=== PATIENT | male | born 1970 | race Caucasian/White ===

== ENCOUNTER 2016-05-15 08:17 | Observation (INO) | payer OTHER ==
[~2016-05-15] VITALS: Ht 160 cm; Wt 92.7 kg
[2016-05-15] VITALS (11 sets, daily range): BP systolic 102–132; BP diastolic 72–85; PULSE 87–132; RESP 18–20; TEMP 97.5–102.5; O2SAT 95–98
[~2016-05-15 08:17] MED LIST: LEXA10TA; [UNRECOGNIZED DRUG - OTHER]
[2016-05-15] MEDS ORDERED: LOMO2.5T PO (08:56)
[2016-05-15] MEDS ORDERED: SODIUM CHLOR 0.9% 1000 ML INJ 1,000 ML IV SCH ×2 (09:15)
[2016-05-15 09:50] LABS: AUTOMATED NEUTROPHIL # 10.8 TH/MM3 (1.8-7.7); BASOPHIL # 0.1 TH/MM3 (0-0.2); BASOPHIL % 0.6 % (0.0-2.0); HEMATOCRIT 37.3 % (39.0-51.0); LYMPH % 2.3 % (9.0-44.0); LYMPHOCYTE # 0.3 TH/MM3 (1.0-4.8); MEAN CELL VOLUME 89.2 FL (80.0-100.0); MEAN CORPUSCULAR HGB CONC 34.8 % (32.0-36.0); MONO % 2.1 % (0.0-8.0); PLATELET COUNT 162 TH/MM3 (150-450); RED BLOOD COUNT 4.19 MIL/MM3 (4.50-5.90); RED CELL DISTRIBUTION WIDTH 12.4 % (11.6-17.2); WHITE BLOOD COUNT 11.4 TH/MM3 (4.0-11.0)
--- NOTE | 2016-05-15 09:50 | RADHPO ---
EXAM DATE/TIME: 05/15/2016 09:23 [place] COMPARISON: No previous studies available for comparison. INDICATIONS : Short of breath, cough, fever MEDICAL HISTORY : None. SURGICAL HISTORY : None. ENCOUNTER: Initial ACUITY: 4 - 6 days PAIN SCORE: 0/10 LOCATION: Bilateral chest FINDINGS: Frontal and lateral views of the chest demonstrates severe dense airspace consolidation within the ri ght middle lobe. No pleural effusion or pneumothorax is visualized. Bones and soft tissues demonstrat e no acute finding. CONCLUSION: Severe dense airspace consolidation within the right middle lobe. Given the history of cough and feve r this is diagnostic of a lobar pneumonia. Recommend followup chest x-ray in approximately 4-6 weeks following appropriate therapy to confirm resolution. Alex Kc MD on May 15, 2016 at 9:45 Board Certified Radiologist. This report was verified electronically.
[2016-05-15 09:52] LABS: GLUCOSE,URINE NEG (NEG); KETONE, URINE TRACE mg/dL (NEG); NITRITE,URINE NEG (NEG)
[2016-05-15 09:53] LABS: HEMO FLAGS DIFF FINAL
[2016-05-15 09:55] LABS: BLOOD, URINE MOD (NEG); METHOD OF COLLECTION CLEAN CATCH; URINE COLOR YELLOW (YELLW/STRAW)
[2016-05-15 09:56] LABS: SQUAMOUS EPITHELIAL CELL URINE 0-5 /hpf (0-5); WBC, URINE 0-2 /hpf (0-5)
[2016-05-15 09:57] LABS: COMMENT (UR) CULT NOT INDICATED; CULTURE IF INDICATED CULT NOT INDICATED
[2016-05-15 10:08] LABS: CHLORIDE 91 MEQ/L (98-107); POTASSIUM 3.2 MEQ/L (3.5-5.1); SODIUM (NA) 125 MEQ/L (136-145)
[2016-05-15 10:12] LABS: ANION GAP 12 MEQ/L (5-15); BICARBONATE 22.2 MEQ/L (21.0-32.0); BLOOD UREA NITROGEN 14 MG/DL (7-18)
[2016-05-15 10:15] LABS: ALT (GPT) 53 U/L (12-78); AST (GOT) 60 U/L (15-37); GLOMERULAR FILTRATION RATE 94 ML/MIN (>89)
[2016-05-15 10:16] LABS: TOTAL BILIRUBIN ADULT 1.4 MG/DL (0.2-1.0)
[2016-05-15 10:18] LABS: ALKALINE PHOSPHATASE 78 U/L (45-117)
--- NOTE | 2016-05-15 10:27 | PD ---
HPI Chief Complaint: Fever Time Seen by Provider: 08:51 Travel History International Travel<30 days: No Contact w/Intl Traveler<30days: No Traveled to known affect area: No History of Present Illness HPI Is a 46-year-old man who presents emergency department complaining of high fevers chills cough and rib pain ongoing for the past 5 days or so. Fever came on abruptly, 103. He's had persistent fever or cough. He developed rib pain in the anterior chest worse with coughing. He's had some diarrhea with this but no vomiting. No definite sick contacts. States she was getting continuously worse, and after he developed a high fever again today he came to the emergency department. He has no history of lung disease but does smoke tobacco daily. Only medical history is IBS for which he takes Lomotil. History Past Medical History Narrative Medical IBS Tobacco use Influenza Vaccination: No Social History Alcohol Use: Yes (3 x's per week ) Tobacco Use: Yes (1 PPD) Allergies-Medications (Allergen,Severity, Reaction): Coded Allergies: No Known Allergies (Verified , 05/15/16) Reported Meds & Prescriptions Reported Meds & Active Scripts Active Reported Lomotil (Diphenoxylate-Atropine) 2.5-0.025 Mg Tab 1 Tab PO Q6H PRN Review of Systems Except as stated in HPI: all other systems reviewed are Neg Physical Exam Narrative GENERAL: 46-year-old man, appears uncomfortable but nontoxic. SKIN: Warm and dry. HEAD: Atraumatic. Normocephalic. EYES: Pupils equal and round. No scleral icterus. No injection or drainage. ENT: No nasal bleeding or discharge. Mucous membranes pink and moist. Throat is normal. NECK: Trachea midline. No JVD. CARDIOVASCULAR: Regular rate and rhythm. No murmur appreciated. RESPIRATORY: Mild tachypnea. Lungs are clear. No wheezing. GASTROINTESTINAL: Abdomen soft, non-tender, nondistended. Hepatic and splenic margins not palpable. MUSCULOSKELETAL: No obvious deformities. No edema. NEUROLOGICAL: Awake and alert. No obvious cranial nerve deficits. Motor grossly within normal limits. Normal speech. PSYCHIATRIC: Appropriate mood and affect; insight and judgment normal. Data Data Last Documented VS Vital Signs Date Time Temp Pulse Resp B/P Pulse Ox O2 Delivery O2 Flow Rate FiO2 05/15/16 09:49 100.4 121 18 130/80 98 Room Air Orders Influenzae A/B Antigen (05/15/16 08:52) Complete Blood Count With Diff (05/15/16 09:11) Comprehensive Metabolic Panel (05/15/16 09:11) Lactic Acid Sepsis Protocol (05/15/16 09:11) Urinalysis - C+S If Indicated (05/15/16 09:11) Blood Culture (05/15/16 09:11) Chest, Pa & Lat (05/15/16 09:11) Ecg Monitoring (05/15/16 09:11) Iv Access Insert/Monitor (05/15/16 09:11) Oximetry (05/15/16 09:11) Oxygen Administration (05/15/16 09:11) Sodium Chlor 0.9% 1000 Ml Inj (Ns 1000 M (05/15/16 09:15) Sodium Chlor 0.9% 1000 Ml Inj (Ns 1000 M (05/15/16 09:15) Ketorolac Inj (Toradol Inj) (05/15/16 10:45) Albuterol-Ipratropium Neb (Duoneb Neb) (05/15/16 12:00) Ceftriaxone Inj (Rocephin Inj) (05/15/16 10:45) Azithromycin Inj (Zithromax Inj) (05/15/16 10:45) Admit Order (Ed Use Only) (05/15/16 ) Labs Laboratory Tests Test 05/15/16 09:40 White Blood Count 11.4 TH/MM3 Red Blood Count 4.19 MIL/MM3 Hemoglobin 13.0 GM/DL Hematocrit 37.3 % Mean Corpuscular Volume 89.2 FL Mean Corpuscular Hemoglobin 31.0 PG Mean Corpuscular Hemoglobin 34.8 % Concent Red Cell Distribution Width 12.4 % Platelet Count 162 TH/MM3 Mean Platelet Volume 7.7 FL Neutrophils (%) (Auto) 95.0 % Lymphocytes (%) (Auto) 2.3 % Monocytes (%) (Auto) 2.1 % Eosinophils (%) (Auto) 0.0 % Basophils (%) (Auto) 0.6 % Neutrophils # (Auto) 10.8 TH/MM3 Lymphocytes # (Auto) 0.3 TH/MM3 Monocytes # (Auto) 0.2 TH/MM3 Eosinophils # (Auto) 0.0 TH/MM3 Basophils # (Auto) 0.1 TH/MM3 CBC Comment DIFF FINAL Differential Comment Urine Collection Type CLEAN CATCH Urine Color YELLOW Urine Turbidity CLEAR Urine pH 6.0 Urine Specific [place] 1.020 Urine Protein 100 mg/dL Urine Glucose (UA) NEG mg/dL Urine Ketones TRACE mg/dL Urine Occult Blood MOD Urine Nitrite NEG Urine Bilirubin NEG Urine Leukocyte Esterase NEG Urine RBC 4-9 /hpf Urine WBC 0-2 /hpf Urine Squamous Epithelial 0-5 /hpf Cells Microscopic Urinalysis Comment CULT NOT INDICATED Urine Collection Time 09:40 Sodium Level 125 MEQ/L Potassium Level 3.2 MEQ/L Chloride Level 91 MEQ/L Carbon Dioxide Level 22.2 MEQ/L Anion Gap 12 MEQ/L Blood Urea Nitrogen 14 MG/DL Creatinine 0.87 MG/DL Estimat Glomerular Filtration 94 ML/MIN Rate Random Glucose 149 MG/DL Lactic Acid Level 1.0 mmol/L Calcium Level 7.5 MG/DL Total Bilirubin 1.4 MG/DL Aspartate Amino Transf 60 U/L (AST/SGOT) Alanine Aminotransferase 53 U/L (ALT/SGPT) Alkaline Phosphatase 78 U/L Total Protein 6.7 GM/DL Albumin 2.4 GM/DL [facility] Medical Decision Making Medical Screen Exam Complete: Yes Emergency Medical Condition: Yes Interpretation(s) LABS: CBC remarkable for mild leukocytosis. CMP CMP unremarkable Lactate 1.0 UA trace ketones Influenza negative Chest x-ray: Demonstrates consolidation in the right middle lobe, recommend repeat imaging after resolution. Differential Diagnosis Influenza, bronchitis, URI, pneumonia Narrative Course Medical decision making 46-year-old male presents emergency Department with 5 days of cough cold fever symptoms, tobacco use, concerning for pneumonia. Chest x-ray shows dense lobar consolidation the right middle lobe suggestive of pneumonia. Influenza is negative. White count labs are otherwise unremarkable. There is a little bit tachycardic. We'll give dose of IV antibiotics, Diagnosis Primary Impression: Sepsis Qualified Code: A41.9 - Sepsis, due to unspecified organism Additional Impression: Pneumonia Qualified Code: J18.1 - Pneumonia of right middle lobe due to infectious organism Barron Beasley MD May 15, 2016 10:27
[2016-05-15] MEDS ORDERED: cefTRIAXone INJ 1,000 MG in SODIUM CHLORIDE 0.9% INJ 100 ML IV ONE (10:45)
[2016-05-15] MEDS ORDERED: KETOROLAC TROMETHAMINE 30 MG/ML (IVP) VIAL IV PUSH ONE (10:45)
[2016-05-15] MEDS ORDERED: AZITHROMYCIN INJ 500 MG in SODIUM CHLOR 0.9% 250 ML INJ 250 ML IV ONE (10:45)
[2016-05-15] MEDS ORDERED: ONDANSETRON HCL 4 MG/2 ML VIAL IV PRN (11:30)
[2016-05-15] MEDS ORDERED: guaiFENesin/DEXTROMETHORPHAN 200 MG/20 MG/10 ML CUP PO PRN (11:30)
[2016-05-15] MEDS ORDERED: SODIUM CHLORIDE 0.9% FLUSH 5 ML FLUSH IV FLUSH PRN (11:30)
[2016-05-15] MEDS ORDERED: RESP: ALBUTEROL 2.5 MG/IPRATROPIUM 0.5 MG NEB (PRN) INH (11:30)
[2016-05-15] MEDS ORDERED: ACETAMINOPHEN 325 MG TAB PO PRN (11:30)
[2016-05-15] MEDS ORDERED: RESP: ALBUTEROL 2.5 MG/IPRATROPIUM 0.5 MG NEB (SCH) NEB (12:00)
[2016-05-15] MEDS: SODIUM CHLOR 0.9% 1000 ML INJ 1,000 ML IV SCH ×2 (12:02→20:01)
[2016-05-15] MEDS: LEVOFLOXACIN 750 MG TAB PO SCH (12:06)
[2016-05-15] MEDS: methylPREDNISolone SOD SUCC 40 MG/1 ML VIAL IV SCH (13:02)
--- NOTE | 2016-05-15 15:20 | HHI.HP ---
[facility] Service [facility] Primary Care Physician Nico Capellan MD Admission Diagnosis sepsis, pneumonia Diagnoses: (1) Sepsis Diagnosis: Principal (2) Pneumonia Diagnosis: Principal Chief Complaint: Fever, cough Travel History International Travel<30 Days: No Contact w/Intl Traveler <30 Da: No Traveled to Known Affected Are: No History of Present Illness 46-year-old male with no chronic medical illnesses presented to hospital because of fever and cough. Patient states that his symptoms started last Monday with low-grade fever, chills, cold sweats, cough which was nonproductive. He tried [id number] medications without any relief. Patient did contact his primary medical doctor and supposedly there was a prescription specific called in but did not happen. He did contact on- demand in which she was prescribed Tamiflu, cough medicine. He did not improve. His fever got up to 103.5 today he came to the hospital for evaluation upon presentation patient was found to have sepsis with tachycardia, fever, and dense right lung pneumonia. As previous stated patient has had fever , chills, cold sweats, cough, no production, no shortness of breath or dyspnea. No abdominal pain, nausea, vomiting, diarrhea. Review of Systems Constitutional: DENIES: Diaphoretic episodes, Fatigue, Fever, Weight gain, Weight loss, Chills, Dizziness, Change in appetite, Night Sweats Eyes: DENIES: Blurred vision, Diplopia, Eye inflammation, Eye pain, Vision loss , Double Vision Ears, nose, mouth, throat: DENIES: Vertigo, Nasal discharge, Throat pain, Ear Pain, Running Nose, Sinus Pain Respiratory: COMPLAINS OF: Cough, DENIES: Apneas, Snoring, Wheezing, Hemoptysis, Sputum production, Shortness of breath Cardiovascular: DENIES: Chest pain, Palpitations, Syncope, Dyspnea on Exertion , Lower Extremity Edema, Orthopnea Gastrointestinal: DENIES: Abdominal pain, Black stools, Bloody stools, Constipation, Diarrhea, Nausea, Vomiting, Difficulty Swallowing, Anorexia Neurologic: DENIES: Abnormal gait, Headache, Localized weakness, Paresthesias, Seizures, Speech Problems, Tremor, Poor Balance Past Family Social History Past Medical History No chronic medical illnesses Past Surgical History Next facial surgery Reported Medications Reported Meds & Active Scripts Active Reported Lomotil (Diphenoxylate-Atropine) 2.5-0.025 Mg Tab 1 Tab PO Q6H PRN Allergies: Coded Allergies: No Known Allergies (Verified , 05/15/16) Family History Reviewed and unremarkable Social History Patient smokes a pack a cigarettes a day since he was 14 years old. He does drink alcohol pretty much daily anywhere from 2-5 beers daily. He does smoke marijuana occasionally Physical Exam Vital Signs Vital Signs Date Time Temp Pulse Resp B/P Pulse Ox O2 Delivery O2 Flow Rate FiO2 05/15/16 13:26 102 20 104/72 97 Room Air 05/15/16 12:16 98.9 111 20 102/79 97 Room Air 05/15/16 11:04 95 21 05/15/16 10:56 124 95 Room Air 05/15/16 10:56 124 20 116/85 95 Room Air 05/15/16 09:49 100.4 121 18 130/80 98 Room Air 05/15/16 09:48 98 Room Air 05/15/16 08:23 102.5 132 18 132/85 95 Physical Exam GENERAL: Well-developed, well-nourished, in no acute distress. alert and orientated HEENT: Head is normocephalic without any lesions or masses noted. Facial features are symmetric. Eyes: Pupils equal round reactive to light. Extraocular muscles are intact. Conjunctivae were clear. Oropharyngeal: Pharynx without any erythema edema. Tongue is midline without deviation. Buccal mucosa is moist without any masses or lesions NECK: Supple without any masses. Trachea midline no deviation. No JVD, no bruits are appreciated CARDIAC: Regular rhythm, regular rate. S1/S2 are heard. No murmurs gallops or rubs. LUNGS: Clear to auscultation bilaterally. No wheeze, rhonchi or rales. No use of accessory muscles on inspiration or expiration. ABDOMEN: Soft, nontender. Nondistended. Bowel sounds heard in all 4 quadrants. No organomegaly or masses. Negative rebound, negative guarding EXTREMITIES: No edema, pulses are equal bilaterally. No cyanosis or clubbing NEUROLOGY: Mood and affect appear appropriate. Cranial nerves II through XII grossly intact. Muscle strength 5/5 in upper and lower extremities bilaterally. Deep tendon reflexes are 2+ in upper and lower extremities bilaterally. Laboratory Laboratory Tests Test 05/15/16 09:40 White Blood Count 11.4 Red Blood Count 4.19 Hemoglobin 13.0 Hematocrit 37.3 Mean Corpuscular Volume 89.2 Mean Corpuscular Hemoglobin 31.0 Mean Corpuscular Hemoglobin 34.8 Concent Red Cell Distribution Width 12.4 Platelet Count 162 Mean Platelet Volume 7.7 Neutrophils (%) (Auto) 95.0 Lymphocytes (%) (Auto) 2.3 Monocytes (%) (Auto) 2.1 Eosinophils (%) (Auto) 0.0 Basophils (%) (Auto) 0.6 Neutrophils # (Auto) 10.8 Lymphocytes # (Auto) 0.3 Monocytes # (Auto) 0.2 Eosinophils # (Auto) 0.0 Basophils # (Auto) 0.1 CBC Comment DIFF FINAL Differential Comment Urine Collection Type CLEAN CATCH Urine Color YELLOW Urine Turbidity CLEAR Urine pH 6.0 Urine Specific [place] 1.020 Urine Protein 100 Urine Glucose (UA) NEG Urine Ketones TRACE Urine Occult Blood MOD Urine Nitrite NEG Urine Bilirubin NEG Urine Leukocyte Esterase NEG Urine RBC 4-9 Urine WBC 0-2 Urine Squamous Epithelial 0-5 Cells Microscopic Urinalysis Comment CULT NOT INDICATED Urine Collection Time 09:40 Sodium Level 125 Potassium Level 3.2 Chloride Level 91 Carbon Dioxide Level 22.2 Anion Gap 12 Blood Urea Nitrogen 14 Creatinine 0.87 Estimat Glomerular Filtration 94 Rate Random Glucose 149 Lactic Acid Level 1.0 Calcium Level 7.5 Total Bilirubin 1.4 Aspartate Amino Transf 60 (AST/SGOT) Alanine Aminotransferase 53 (ALT/SGPT) Alkaline Phosphatase 78 Total Protein 6.7 Albumin 2.4 Date/Time Procedure Status Source Growth 05/15/16 10:40 Aerobic Blood Culture Received Blood Peripheral Pending 05/15/16 10:40 Anaerobic Blood Culture Received Blood Peripheral Pending 05/15/16 09:10 Influenza Types A,B Antigen (ANTHONY) - Final Complete Nasal Washing NEGATIVE FOR FLU A AND B ANTIGEN.... Result Diagram: 05/15/1640 05/15/1640 Imaging Last Impressions Chest X-Ray 05/15/16 0911 Signed Impressions: Service Date/Time: Sunday, May 15, 2016 09:23 - CONCLUSION: Severe dense airspace consolidation within the right middle lobe. Given the history of cough and fever this is diagnostic of a lobar pneumonia. Recommend followup chest x-ray in approximately 4-6 weeks following appropriate therapy to confirm resolution. Alex Kc MD Septic Shock Reassessment Heart: Regular rate and rhythm Lungs: Clear Skin: Warm, Moist Peripheral Pulses: Bounding Right Radial Bounding Left Radial Capillary Refill: Brisk, <2 seconds Assessment and Plan Assessment and Plan Sepsis Patient meets criteria with febrile illness, tachycardia, right lung pneumonia Patient started on Rocephin and Zithromax Influenza testing was negative Blood cultures are pending Obtain sputum culture Community-acquired right lung pneumonia Levaquin 750 mg daily Duo nebs 4 times daily Robitussin-DM every 4 hours as needed for cough Solu-Medrol 40 mg IV every 12 hours Incentive spirometry Sputum culture DVT prevention Lovenox Written by Puneet Joseph PA-C, acting as scribe for Dr. Copeland on 05/15/16 at 1530. The documentation accurately reflects the work and decisions performed face-to- face by Dr. Copeland on 05/15/16 at 1530. Physician Certification 2 Midnight Certification Type: Admission for Inpatient Services Order for Inpatient Services The services are ordered in accordance with Medicare regulations or non- Medicare payer requirements, as applicable. In the case of services not specified as inpatient-only, they are appropriately provided as inpatient services in accordance with the 2-midnight benchmark. Estimated LOS (days): 2 days is the estimated time the patient will need to remain in the hospital, assuming treatment plan goals are met and no additional complications. Post-Hospital Plan: Not yet determined Problem Qualifiers (1) Sepsis: Qualified Code: A41.9 - Sepsis, due to unspecified organism (2) Pneumonia: Qualified Code: J18.1 - Pneumonia of right middle lobe due to infectious organism Puneet Joseph May 15, 2016 15:19
[2016-05-15] MEDS: RESP: ALBUTEROL 2.5 MG/IPRATROPIUM 0.5 MG NEB (SCH) INH ×2 (15:54→20:11)
[2016-05-15] MEDS ORDERED: RESP: ALBUTEROL 2.5 MG/IPRATROPIUM 0.5 MG NEB (SCH) INH (16:00)
[2016-05-15] MEDS ORDERED: ACETAMINOPHEN/CODEINE ELIX 120 MG/12 MG/5 ML CUP PO PRN (17:15)
[2016-05-15] MEDS: SODIUM CHLORIDE 0.9% FLUSH 5 ML FLUSH IV FLUSH SCH (20:01)
[2016-05-16] VITALS: BP 103/70; PULSE 102; RESP 18; TEMP 96.5; O2SAT 96
[2016-05-16] MEDS: methylPREDNISolone SOD SUCC 40 MG/1 ML VIAL IV SCH ×2 (02:19→12:29)
[2016-05-16 04:00] VITALS: BP 102/72; PULSE 82; RESP 16; TEMP 95.7; O2SAT 98
[2016-05-16] MEDS: SODIUM CHLOR 0.9% 1000 ML INJ 1,000 ML IV SCH (05:37)
[2016-05-16] MEDS: RESP: ALBUTEROL 2.5 MG/IPRATROPIUM 0.5 MG NEB (SCH) INH ×2 (07:41→12:02)
[2016-05-16 07:43] VITALS: O2SAT 98
[2016-05-16 07:46] LABS: BASOPHIL % 0.1 % (0.0-2.0); EOSINOPHIL # 0.1 TH/MM3 (0-0.4); HEMATOCRIT 36.4 % (39.0-51.0); LYMPH % 1.9 % (9.0-44.0); LYMPHOCYTE # 0.2 TH/MM3 (1.0-4.8); MEAN CELL VOLUME 90.7 FL (80.0-100.0); MEAN CORPUSCULAR HEMOGLOBIN 30.6 PG (27.0-34.0); MEAN CORPUSCULAR HGB CONC 33.8 % (32.0-36.0); MONO % 4.8 % (0.0-8.0); NEUT % 92.2 % (16.0-70.0); PLATELET COUNT 199 TH/MM3 (150-450); RED BLOOD COUNT 4.01 MIL/MM3 (4.50-5.90); RED CELL DISTRIBUTION WIDTH 12.9 % (11.6-17.2); WHITE BLOOD COUNT 11.9 TH/MM3 (4.0-11.0)
[2016-05-16 07:47] LABS: HEMO FLAGS DIFF FINAL
[2016-05-16 08:00] VITALS: BP 103/79; PULSE 83; PULSE 95; RESP 18; TEMP 96.8; O2SAT 97
[2016-05-16 08:01] LABS: BICARBONATE 23.9 MEQ/L (21.0-32.0); POTASSIUM 3.3 MEQ/L (3.5-5.1); TOTAL BILIRUBIN ADULT 0.6 MG/DL (0.2-1.0)
[2016-05-16] MEDS: SODIUM CHLORIDE 0.9% FLUSH 5 ML FLUSH IV FLUSH SCH (09:00)
[2016-05-16] MEDS ORDERED: LEVA750T PO (09:35)
--- NOTE | 2016-05-16 09:36 | HHI.DCPOC ---
Discharge Care Plan Diagnosis: (1) Pneumonia Goals to Promote Your Health * To prevent worsening of your condition and complications * To maintain your health at the optimal level Directions to Meet Your Goals Take your medications as prescribed Follow your dietary instruction Follow activity as directed Keep your appointments as scheduled Take your immunizations and boosters as scheduled If your symptoms worsen call your PCP, if no PCP go to Urgent Care Center or Emergency Room Smoking is Dangerous to Your Health. Avoid second hand smoke Call the 24-hour hour crisis hotline for domestic abuse at Puneet Joseph May 16, 2016 09:36
[2016-05-16] MEDS ORDERED: POTASSIUM CHLORIDE 20 MEQ CONTROLLED RELEASE TAB PO ONE (09:45)
[2016-05-16] MEDS ORDERED: INFLUENZA VIRUS VACCINE (QUADRIVALENT) 0.5 ML SYR IM ONE (10:00)
[2016-05-16] MEDS ORDERED: PNEUMOCOCCAL POLYVALENT INJ 25 MCG/0.5 ML SYR IM ONE (10:00)
[2016-05-16 12:00] VITALS: BP 115/78; PULSE 96; RESP 18; TEMP 97.4; O2SAT 97
[2016-05-16] MEDS: LEVOFLOXACIN 750 MG TAB PO SCH (12:28)
[2016-05-16] MEDS ORDERED: VENTAER INH (13:38)
[2016-05-16] MEDS ORDERED: ACET120S PO (13:49)
--- NOTE | 2016-05-16 13:53 | HHI.PR ---
Subjective Remarks Patient states he feels 100% better. He states his fever broke. Cough is improved. No shortness of breath. He would like to go home today. Objective Vitals Vital Signs Date Time Temp Pulse Resp B/P Pulse Ox O2 Delivery O2 Flow Rate FiO2 05/16/16 12:00 97.4 96 18 115/78 97 05/16/16 08:00 96.8 83 18 103/79 97 05/16/16 07:43 98 21 05/16/16 04:00 95.7 82 16 102/72 98 05/16/16 00:00 96.5 102 18 103/70 96 05/15/16 20:12 98 21 05/15/16 20:00 98 05/15/16 20:00 97.8 87 18 110/81 98 05/15/16 16:00 97.5 98 18 112/79 96 05/15/16 15:38 97 I/O 05/15/16 05/15/16 05/15/16 05/16/16 05/16/16 05/16/16 07:00 15:00 23:00 07:00 15:00 23:00 Intake Total 4100 ml 977 ml 949 ml 1260 ml Output Total 300 ml Balance 3800 ml 977 ml 949 ml 1260 ml Intake Oral 1260 ml IV Total 4100 ml 977 ml 949 ml Output Urine Total 300 ml # Voids 6 # Bowel Movements 1 Result Diagram: 05/16/1625 05/16/16 0725 Objective Remarks GENERAL: Well-nourished, well-developed pleasant male patient appears generally than stated age. SKIN: Warm and dry. HEAD: Normocephalic. EYES: No scleral icterus. No injection or drainage. NECK: Supple, trachea midline. No JVD or lymphadenopathy. CARDIOVASCULAR: Regular rate and rhythm without murmurs, gallops, or rubs. RESPIRATORY: Breath sounds equal bilaterally. Clear to auscultation bilaterally. No accessory muscle use. GASTROINTESTINAL: Abdomen soft, non-tender, nondistended. EXTREMITIES: No cyanosis, or edema. NEUROLOGICAL: Awake, alert, and oriented x 3. Non-focal. A/P Problem List: (1) Pneumonia ICD Code: J18.9 Status: Acute Assessment and Plan Community-acquired right lung pneumonia - he was placed in observation as he met sepsis criteria. However much improved today. Blood cultures are no growth at 1 day. No further fevers. He feels much improved. He was treated only with Levaquin by mouth. We'll discharge today to complete 7 days of treatment technique where pneumonia. Patient advised to return to ER should cough worsen or should he develop new fevers or any shortness of breath., Problem Qualifiers (1) Pneumonia: Qualified Code: J18.1 - Pneumonia of right middle lobe due to infectious organism Cecelia Copeland MD May 16, 2016 13:53
== END 2016-05-16 15:32 | disposition home or self-care (01) ==
LOC: PHED 08:17 → PHEDA 10:53 → INTOOBSV 10:53 → PH3B 13:53
PROVIDERS: ADMIT Family Medicine; ATTEND Family Medicine
DX: J18.9 Pneumonia, unspecified organism (principal); A41.9 Sepsis, unspecified organism; R50.9 Fever, unspecified; R05 Cough; R00.0 Tachycardia, unspecified; F17.210 Nicotine dependence, cigarettes, uncomplicated
CPT/HCPCS: 71020; 80053; 81001; 83605; 85025; 87040; 87070; 87205; 87804; 90471; 90686; 94150; 94640; 94664; 96361; 96374; 96375; 99285; G0378; J0456; J0696; J1885; J2920; J7030; J7050; G0008; Q2038